=== PATIENT | male | born 1945 | race Caucasian/White ===

== ENCOUNTER → 2020-11-15 16:06 | Outpatient (CLI) | payer MEDICARE, SELFPAY ==
--- NOTE | ~2020-11-15 | XR_ITS ---
EXAMINATION: XR elbow RT 2V DATE: 11/15/2020 16:20 INDICATION: Right elbow pain. TECHNIQUE: 2 views of right elbow were obtained. COMPARISON: None. FINDINGS: Bone alignment is normal. No fracture. Joint spaces are normal. There are enthesophytes at the medial and lateral humeral epicondyles and olecranon. No elbow joint effusion. IMPRESSION: 1. No fracture. Reviewed, dictated and finalized at location A. IMPRESSION: 1. No fracture.
== END ==
PROVIDERS: PCP Family Medicine; Visit Provider Physician Assistant Medical
DX: M25.521 Pain in right elbow (principal)
CPT/HCPCS: 73070

== ENCOUNTER 2021-01-24 08:23 | Outpatient (CLI) | payer MEDICARE, SELFPAY ==
--- NOTE | 2021-01-24 11:45 | NEURO_ITS ---
Impression: # Complains of numbness of hands. # Bilateral Carpal Tunnel Syndrome, left more than right. # Right ulnar neuropathy across the elbow. # Needle/EMG exam abnormal in the distribution of ulnar/median nerves. # Clinical correlation recommended. Nerve Conduction Studies Anti Sensory Summary Table Stim Site NR Peak (ms) P-T Amp (?V) Site1 Site2 Delta-P (ms) Dist (cm) Mickey (m/s) Left Median Anti Sensory (2-3nd Digit) Wrist 4.4 10.6 Wrist 2-3nd Digit 4.4 14.0 32 Wrist 4.7 9.0 Wrist 2-3nd Digit 4.4 14.0 32 Right Median Anti Sensory (2-3nd Digit) Wrist 4.1 42.1 Wrist 2-3nd Digit 4.1 14.0 34 Wrist 4.1 32.4 Wrist 2-3nd Digit 4.1 14.0 34 Left Radial Anti Sensory (Base 1st Digit) Wrist 2.1 37.1 Wrist Base 1st Digit 2.1 0.0 Right Radial Anti Sensory (Base 1st Digit) Wrist 2.3 11.6 Wrist Base 1st Digit 2.3 0.0 Left Ulnar Anti Sensory (5th Digit) Wrist 3.2 29.2 Wrist 5th Digit 3.2 14.0 44 Right Ulnar Anti Sensory (5th Digit) Wrist 3.3 10.8 Wrist 5th Digit 3.3 14.0 42 Motor Summary Table Stim Site NR Onset (ms) O-P Amp (mV) Site1 Site2 Delta-0 (ms) Dist (cm) Mickey (m/s) Left Median Motor (Abd Poll Brev) Wrist 5.2 1.1 Elbow Wrist 6.6 31.0 47 Elbow 11.8 1.2 Right Median Motor (Abd Poll Brev) Wrist 4.6 3.3 Elbow Wrist 5.7 32.0 56 Elbow 10.3 2.9 Left Ulnar Motor (Abd Dig Minimi) Wrist 3.0 5.9 A Elbow Wrist 6.2 33.0 53 A Elbow 9.2 5.2 Right Ulnar Motor (Abd Dig Minimi) Wrist 2.9 4.4 A Elbow Wrist 7.6 31.0 41 A Elbow 10.5 2.9 B Elbow Wrist 5.9 25.0 42 B Elbow 8.8 3.4 F Wave Studies NR F-Lat (ms) L-R F-Lat (ms) Left Median (Mrkrs) (Abd Poll Brev) 32.70 0.00 Right Median (Mrkrs) (Abd Poll Brev) 32.70 0.00 Left Ulnar (Mrkrs) (Abd Dig Min) 33.88 0.73 Right Ulnar (Mrkrs) (Abd Dig Min) 33.15 0.73 EMG Side Muscle Nerve Root Ins Act Fibs Amp Dur Recrt Comment Right 1stDorInt Ulnar C8-T1 Nml Nml Incr >12ms Reduced Right Ext Indicis Radial (Post Int) C7-8 Nml Nml Nml Nml Nml Right Ext Digitorum Radial (Post Int) C7-8 Nml Nml Nml Nml Nml Right BrachioRad Radial C5-6 Nml Nml Nml Nml Nml Right PronatorTeres Median C6-7 Nml Nml Nml Nml Nml Right Abd Poll Brev Median C8-T1 Nml Nml Incr >12ms Reduced Left 1stDorInt Ulnar C8-T1 Nml Nml Nml Nml Nml Left Ext Indicis Radial (Post Int) C7-8 Nml Nml Nml Nml Nml Left Ext Digitorum Radial (Post Int) C7-8 Nml Nml Nml Nml Nml Left BrachioRad Radial C5-6 Nml Nml Nml Nml Nml Left PronatorTeres Median C6-7 Nml Nml Nml Nml Nml Left Abd Poll Brev Median C8-T1 Nml Nml Incr >12ms Reduced Right ABD Dig Min Ulnar C8-T1 Nml Nml Incr >12ms Reduced Right Biceps Musculocut C5-6 Nml Nml Nml Nml Nml Right Triceps Radial C6-7-8 Nml Nml Nml Nml Nml Right Deltoid Axillary C5-6 Nml Nml Nml Nml Nml Left ABD Dig Min Ulnar C8-T1 Nml Nml Nml Nml Nml MTDD
== END 2021-01-24 08:24 | disposition home or self-care (01) ==
PROVIDERS: PCP Family Medicine; Visit Provider Physician Assistant Medical
DX: R20.2 Paresthesia of skin (principal); G56.03 Carpal tunnel syndrome, bilateral upper limbs; G56.21 Lesion of ulnar nerve, right upper limb
CPT/HCPCS: 95886; 95911

== ENCOUNTER 2021-02-11 17:26 | Emergency (ER) | payer MEDICARE, SELFPAY ==
--- NOTE | 2021-02-11 17:34 | ED.WOUNDLAC ---
HPI - Wound/Laceration General Chief Complaint: Wound/Laceration Stated Complaint: cut left ear Time Seen by Provider: 02/11/21 17:45 Source: patient and RN notes reviewed Mode of arrival: ambulatory Limitations: no limitations History of Present Illness HPI narrative: 75-year-old male presents with concern for laceration to the left ear. Reports he was cutting his hair when he accidentally cut his ear. Reports he takes aspirin for blood thinner. He denies intervention. Location: face Related Data Home Medications Medication Instructions Recorded Confirmed aspirin 81 mg tablet,delayed 81 mg PO DAILY 09/13/20 11/15/20 release atorvastatin 40 mg tablet 40 mg PO DAILY 09/13/20 11/15/20 budesonide-formoterol HFA 160 2 puff INHALATION Q12H 09/13/20 11/15/20 mcg-4.5 mcg/actuation aerosol inhaler ferrous sulfate 300 mg (60 mg 300 mg PO DAILY 09/13/20 11/15/20 iron)/5 mL oral liquid furosemide 40 mg tablet 40 mg PO BID 09/13/20 11/15/20 lisinopril 10 mg tablet 10 mg PO DAILY 09/13/20 11/15/20 metoprolol succinate 25 mg 25 mg PO BID 09/13/20 11/15/20 tablet,extended release 24 hr multivitamin 1 tablet PO DAILY 09/13/20 11/15/20 potassium chloride 40 mEq/15 mL 20 meq PO BID 09/13/20 11/15/20 oral liquid saw palmetto 450 mg capsule 450 mg PO BID 09/13/20 11/15/20 Allergies Allergy/AdvReac Type Severity Reaction Status Date / Time No Known Allergies Allergy Verified 11/15/20 15:17 Review of Systems Review of Systems: CONSTITUTIONAL: Denies malaise, chills, sweats, or fever. SKIN: Reports wound to the left ear All systems reviewed & are unremarkable except as noted in HPI and below PMFSH Past Medical History Medical History BMI 25.0-25.9,adult BMI 26.0-26.9,adult CAD (coronary artery disease) CHF (congestive heart failure) COPD (chronic obstructive pulmonary disease) Elevated brain natriuretic peptide (BNP) level HTN (hypertension) Hypothyroidism, unspecified Mixed hyperlipidemia Pacemaker Primary osteoarthritis of right knee Strain of left quadriceps muscle, fascia and tendon, subsequent encounter (11/28/16) Traumatic rupture of left quadriceps tendon Venous stasis ulcer of right calf limited to breakdown of skin Surgical History Surgical History History of AAA (abdominal aortic aneurysm) repair History of hernia repair History of mitral valve replacement with porcine valve S/P CABG (coronary artery bypass graft) Family History Family History Father Hypertension Family history of coronary artery disease Acute myocardial infarction Mother No problems noted. Sibling Arrhythmia, skilled nursing Hypertension Shingles Social History Social History Tobacco type: cigarettes Smoking end date: 10/04/16 Alcohol intake: current Substance use: never Substance use type: does not use Additional occupation/education comments: [employer] Gender identity (if verbalized by the patient): Male Comments At time of signature, agree with nursing past medical, surgical, social and family history. There is no relevant family history pertinent to the presenting complaint Exam Narrative: GENERAL: Well-appearing, well-nourished, and in no acute distress. HEAD: Normocephalic, atraumatic. EYES: PERRLA, sclera clear ENT: Mucous membranes moist. NECK: Supple. No lymphadenopathy CHEST: Clear to auscultation. No respiratory distress. HEART: Regular rate and rhythm. SKIN: Warm, dry. 1 cm x 0.25 cm skin avulsion noted to the skin of the upper outer ear, wound edges not able to be approximated., No current bleeding. NEURO: Alert and oriented x3. PSYCH: Normal mood and affect Course Course Emergency Course: Sterile dressing applied. Patient is aware of diagno
[2021-02-11 17:39] VITALS: BP 165/58; PULSE 70; RESP 16; TEMP 36.8; O2SAT 98
[2021-02-11] MEDS: TETANUS,DIPHTHERIA,AC PERTUSSIS ADULT (0.5 ML) BOOSTRIX IM (18:10)
== END 2021-02-11 18:37 | disposition home or self-care (01) ==
PROVIDERS: Emergency Provider Nurse Practitioner; PCP Family Medicine
DX: S01.302A Unspecified open wound of left ear, initial encounter (principal); W45.8XXA Other foreign body or object entering through skin, initial encounter; Z23 Encounter for immunization; F17.200 Nicotine dependence, unspecified, uncomplicated; I25.10 Atherosclerotic heart disease of native coronary artery without angina pectoris; I11.0 Hypertensive heart disease with heart failure; I50.9 Heart failure, unspecified; J44.9 Chronic obstructive pulmonary disease, unspecified; E78.2 Mixed hyperlipidemia; Z95.0 Presence of cardiac pacemaker; M17.11 Unilateral primary osteoarthritis, right knee; Z95.2 Presence of prosthetic heart valve; Z95.1 Presence of aortocoronary bypass graft
CPT/HCPCS: 90471; 90715; 99212; G0463

== ENCOUNTER → 2021-08-15 13:00 | Outpatient (CLI) | payer MEDICARE, SELFPAY ==
--- NOTE | ~2021-08-15 | XR_ITS ---
EXAMINATION: XR chest 2V EXAM DATE: 08/15/2021 13:24 INDICATION: R05.9 - Cough, unspecified. TECHNIQUE: Frontal and lateral projections of the chest obtained and reviewed. Comparison is made to prior examination from 01/27/2013. FINDINGS: The cardiac silhouette is enlarged. There is pulmonary vascular congestion. Small left pleu ral effusion. Multi lead pacemaker/AICD device. Sternotomy wires. Some chronic hyperinflation. No pne umothorax. There are bony degenerative changes. IMPRESSION: 1. Small left pleural effusion. 2. Cardiomegaly, pulmonary vascular congestion. 3. Hyperinflation. Reviewed, dictated and finalized at location B.
== END ==
PROVIDERS: PCP Nurse Practitioner Family; Visit Provider Nurse Practitioner Family
DX: R05.9 Cough, unspecified (principal); R91.8 Other nonspecific abnormal finding of lung field; J90 Pleural effusion, not elsewhere classified; I51.7 Cardiomegaly
CPT/HCPCS: 71046

== ENCOUNTER 2021-08-27 12:24 | Outpatient (CLI) | payer MEDICARE, SELFPAY ==
[2021-08-27 14:06] LABS: Hematocrit 37.7 % (42.0-52.0); Hemoglobin 12.1 g/dL (14.0-18.0)
[2021-08-27 14:18] LABS: Anion Gap 5 mmol/L (8-16); Blood Urea Nitrogen 28 mg/dL (9-20); Calcium 8.5 mg/dL (8.4-10.2); Carbon Dioxide 29 mmol/L (22-30); Chloride 104 mmol/L (98-107); Estimated Glomerular Filt Rate 49; Glucose 121 mg/dL (65-110); Potassium 3.9 mmol/L (3.4-5.0); Sodium 138 mmol/L (137-145)
== END 2021-08-27 12:25 | disposition home or self-care (01) ==
LOC: ANHSURGERY 12:29
PROVIDERS: Anesthesiology; PCP Family Medicine; Visit Provider Plastic Surgery
DX: Z01.818 Encounter for other preprocedural examination (principal); D64.9 Anemia, unspecified; Z79.899 Other long term (current) drug therapy
CPT/HCPCS: 36415; 80048; 85014; 85018

== ENCOUNTER 2021-08-30 01:48 | Day surgery (SDC) | payer MEDICARE, SELFPAY ==
[2021-08-23 10:08] VITALS: BMI 26.4
--- NOTE | 2021-08-23 10:30 | PC.NURSE ---
Report to the Outpatient Waiting Room, entrance under the green pavilion located off [facility], at time _1015_ on date _08/30/21_. OR Time: _1215_. - You and your visitor will be asked a series of questions to screen for COVID 19 for your protection. - A mask is required within the hospital. One visitor will be allowed to accompany the patient into the hospital. Patients visitor will be instructed to remain with patient at all times or leave the building. We will allow the visitor to come back to the postoperative area when patient is ready. Preoperative COVID Testing Requirements: NONE Patients may have clear liquids (water, carbonated beverages, clear teas, apple juice) until 3 hours prior to surgery (0915 AM) with a maximum of 20 ounces. - No food from midnight until time of surgery Take the following medications with a SIP of water the morning of surgery: _METOPROLOL, INHALER, NASAL SPRAY_ Medications to discontinue _ ASPIRIN - PER DR. MUÑOZ'S INSTRUCTIONS Medications to discontinue per ANESTHESIA - VITAMIN D, FISH OIL AND SAW PALMETTO - 3 DAYS PRIOR TO SURGERY, Date to take last dose_08/26/21 Please no make-up, nail yoruba, hairspray, perfume, deodorant, or body powder the day of surgery. No jewelry (including any body piercings) or valuables the day of surgery, leave them at home. Please take a shower or bath the night before, or the morning of, surgery with an antibacterial soap. Wear comfortable, loose fitting clothing. - Jewelry must be removed prior to entering the operating room. Rings and piercings that are not removed may be cut off. - The hospital will not accept responsibility for valuables. - Please leave all valuables, including medications, at home the day of surgery. If you are going home after surgery, a licensed cab driver must drive you home. - NO public transportation without another adult. - We recommend that an adult stay with you for 24 hours following discharge. - We also recommend that you do not drive, make important decision, drink alcoholic beverages, or take any drugs that were not prescribed by your health care provider for at least 24 hours after your discharge time. Follow any additional instructions given to you from your surgeon. Telephone instructions given to _PT'S SPOUSE KAY__and asked if any additional questions and then verbalized understanding. Patient advised to call surgeon office or pre surgery nurse liaisonBRENNA [phone] if any additional questions.
--- NOTE | 2021-08-30 07:10 | WPDHPUPDATE1 ---
History and Physical Update Update Date/Time: 08/30/21 07:10 History and Physical has been reviewed, including an updated exam of the patient. There are NO changes in the patient's condition. Risks, benefits, and alternatives have been discussed and questions answered. Patient agrees to proceed with procedure.
--- NOTE | 2021-08-30 07:22 | WPDANESEPPF ---
Anes - Initial Pre Proc Eval Procedure: Operation Date: 08/30/21 12:15 Proposed Procedures p Right Open Carpal Tunnel Release - Aydin Dumont MD s Right Ulnar Neuroplasty - Aydin Dumont MD <Rodrigo Leyva MD - Last Filed: 09/04/21 15:25> Date/Time: 08/30/21 07:22 <Rodrigo Leyva MD - Last Filed: 09/04/21 15:25> Surgeon: Aydin Dumont MD <Rodrigo Leyva MD - Last Filed: 09/04/21 15:25> Pre Op Diagnosis: Rt Carpal and Cubital Tunnel Syndrome <Rodrigo Leyva MD - Last Filed: 09/04/21 15:25> Patient Data Age: 75 Gender: M Height: 1.83 m Weight: 88.63 kg <Rodrigo Leyva MD - Last Filed: 09/04/21 15:25> Allergies Allergy/AdvReac Type Severity Reaction Status Date / Time No Known Allergies Allergy Verified 08/23/21 09:59 <Rodrigo Leyva MD - Last Filed: 09/04/21 15:25> Home Medications Medication Instructions Recorded Confirmed Type aspirin 81 mg tablet,delayed 81 mg PO DAILY 09/13/20 08/30/21 History release atorvastatin 40 mg tablet 40 mg PO HS 09/13/20 08/30/21 History ferrous sulfate 300 mg (60 mg 300 mg PO DAILY 09/13/20 08/30/21 History iron)/5 mL oral liquid furosemide 40 mg tablet 40 mg PO BID 09/13/20 08/30/21 History metoprolol succinate 25 mg 25 mg PO BID 09/13/20 08/30/21 History tablet,extended release 24 hr multivitamin 1 tablet PO DAILY 09/13/20 08/30/21 History potassium chloride 40 mEq/15 mL 20 meq PO BID 09/13/20 08/30/21 History oral liquid saw palmetto 450 mg capsule 450 mg PO BID 09/13/20 08/30/21 History budesonide-formoterol HFA 80 1 inh INHALATION TID 07/04/21 08/30/21 History mcg-4.5 mcg/actuation aerosol inhaler ipratropium bromide 21 mcg (0.03 2 spray INTRANASAL BID PRN #30 ml 08/13/21 08/30/21 Rx %) nasal spray lisinopril 20 mg tablet 20 mg PO DAILY #30 tablet 08/13/21 08/30/21 Rx risperidone 0.25 mg tablet 0.25 mg PO QHS #90 tablet 08/13/21 08/30/21 Rx cholecalciferol (vitamin D3) 25 mcg PO DAILY 08/23/21 08/30/21 History omega-3 fatty acids-vitamin E 1 cap 4XW 08/23/21 08/30/21 History hydrocodone-acetaminophen 1 tablet PO Q6H PRN #6 tablet MDD 6 08/30/21 Rx <Rodrigo Leyva MD - Last Filed: 09/04/21 15:25> Patient hx anesthesia problems: none <Sammy Lebron DO - Last Filed: 08/30/21 11:11> Family hx anesthesia problems: none <Sammy Lebron DO - Last Filed: 08/30/21 11:11> Results Review: All pre-operative results and documents have been reviewed as part of the pre-operative evaluation. <Rodrigo Leyva MD - Last Filed: 09/04/21 15:25> [facility] Past Medical History Medical History: Medical History (Updated 08/30/21 @ 07:23 by Rodrigo Leyva MD) Atrial fibrillation BMI 25.0-25.9,adult BMI 26.0-26.9,adult BMI 27.0-27.9,adult CAD (coronary artery disease) CHF (congestive heart failure) COPD (chronic obstructive pulmonary disease) Elevated brain natriuretic peptide (BNP) level HTN (hypertension) Hypothyroidism, unspecified Mixed hyperlipidemia Pacemaker Primary osteoarthritis of right knee Strain of left quadriceps muscle, fascia and tendon, subsequent encounter (11/28/16) Traumatic rupture of left quadriceps tendon Varicose veins of right lower extremity Venous stasis ulcer of right calf limited to breakdown of skin <Rodrigo Leyva MD - Last Filed: 09/04/21 15:25> Surgical History Surgical History: Surgical History History of AAA (abdominal aortic aneurysm) repair History of hernia repair History of mitral valve replacement with porcine valve S/P CABG (coronary artery bypass graft) <Rodrigo Leyva MD - Last Filed: 09/04/21 15:25> Family History Family History: Family History Father Hypertension Family history of coronary artery disease Acute myocardial infarction Mother
[2021-08-30] MEDS: LACTATED RINGERS 1,000 ML 30 ML IV CONT (11:20)
[2021-08-30 11:24] VITALS: BP 145/65; PULSE 70; RESP 16; TEMP 36.3; O2SAT 100
[2021-08-30] MEDS: LIDO 1%/EPINEPHRINE/PF 1:200,000 30 ML VIAL INFILTRATE (13:09)
[2021-08-30 13:36] VITALS: BP 154/67; PULSE 70; RESP 14; O2SAT 100
--- NOTE | 2021-08-30 13:53 | W.PM.PROC2 ---
Procedure Note - Detailed Date of Procedure 08/30/21 Pre-op Diagnosis Rt Carpal and Cubital Tunnel Syndrome Post-op Diagnosis Same Procedure Performed Right open carpal tunnel release and right ulnar neuroplasty at the elbow. Surgeon Aydin Dumont MD Natural Resource Technician Ena CHAU Description of Procedure The right carpal canal and right cubital tunnel were marked on the patient in the holding area. He was taken to the operating room and placed supine on the operating table. A time-out was held and confirmed. He was given IV sedation. The right upper extremity was prepped and draped usual fashion. The sites were marked for incisions and locally infiltrated with 1% lidocaine with epinephrine. The extremity was exsanguinated the tourniquet inflated to 250 mmHg. Surgery was begun in the palm with incision as marked. Blunt dissection revealed the palmar fashion this was incised revealing the transverse retinaculum. This was incised with a 15 blade opening the canal under 3 point retraction the ligament was divided distally and proximally to completely release the carpal tunnel. Wound was then closed with interrupted 4-0 nylon suture. The elbow was then flexed and supported on folded towels and the incision was made over the cubital tunnel. Dissection proximally a posterior to the medial epicondyle revealed the course of the ulnar nerve. This seemed tightly impacted against the intermuscular septum. It is also seemed to be under pressure at Barroso's ligament and at the proximal edge of the flexor aponeurosis. All of this was released. The nerve did not sublux. Bleeding points were electrocoagulated the tourniquet was released and the wound was closed with intradermal 3-0 Monocryl sutures at the cross franco gardner and the skin was closed with a running intradermal 3-0 Monocryl. The bulky bandages as usual were applied the patient was discharged from the operating room stable condition he has instructions care follow-up and a prescription was sent to his pharmacy for hydrocodone 5325 6. Estimated Blood Loss 1 Drains No Packing No Pathology None sent Complications No immediate complications Condition Stable Disposition Same day
[2021-08-30 14:06] VITALS: BP 177/68; PULSE 69; RESP 14
[2021-08-30 14:36] VITALS: BP 177/81; PULSE 69; RESP 14
[2021-08-30 15:06] VITALS: BP 177/68; PULSE 69; RESP 14
== END 2021-08-30 15:35 | disposition home or self-care (01) ==
PROVIDERS: PCP Family Medicine; Visit Provider Plastic Surgery
PROC: (CPT 64721; principal; 2021-08-30 12:15)
PROC: (CPT 64721; 2021-08-30 12:15)
DX: G56.01 Carpal tunnel syndrome, right upper limb (principal); G56.21 Lesion of ulnar nerve, right upper limb; I48.91 Unspecified atrial fibrillation; I25.10 Atherosclerotic heart disease of native coronary artery without angina pectoris; I11.0 Hypertensive heart disease with heart failure; I50.9 Heart failure, unspecified; J44.9 Chronic obstructive pulmonary disease, unspecified; E78.2 Mixed hyperlipidemia; E03.9 Hypothyroidism, unspecified; Z95.0 Presence of cardiac pacemaker; Z95.1 Presence of aortocoronary bypass graft; Z95.3 Presence of xenogenic heart valve; Z87.891 Personal history of nicotine dependence; Z79.82 Long term (current) use of aspirin; Z79.51 Long term (current) use of inhaled steroids
CPT/HCPCS: 64721; 64718; 36415; 80048; 85014; 85018; J1100; J2250; J2405; J2704; J3010; J7120

== ENCOUNTER 2021-09-11 14:05 | Outpatient (CLI) | payer MEDICARE, SELFPAY ==
--- NOTE | ~2021-09-11 | US_ITS ---
EXAMINATION: US venous doppler [facility] DATE: 09/11/2021 15:22 INDICATION: Left lower limb pain TECHNIQUE: Grayscale ultrasound images without and with compression and Doppler ultrasound images of the bilateral lower extremity veins were obtained. COMPARISON: None. FINDINGS: The visualized portions of right common femoral vein, profunda (deep) femoral vein, femoral vein, pop liteal vein, posterior tibial veins, peroneal veins, lesser saphenous vein and greater saphenous vein outflow are patent. There is a lenticular complex anechoic/hypoechoic subcutaneous fluid collection along the anterolateral left lower leg which measures 3.2 x 3.2 x 0.6 cm. No internal vascular flow o r surrounding hyperemia on color Doppler. The visualized portions of left common femoral vein, profunda femoral vein, femoral vein, popliteal v ein, posterior tibial veins, peroneal veins, lesser saphenous vein and greater saphenous vein outflow are patent. IMPRESSION: 1. No deep venous thrombosis in either lower limb. 2. 3.2 x 3.2 x 0.6 similar complex lenticular subcutaneous fluid collection at the anterolateral left lower leg. Differential would include hematoma, particularly given the provided history of trauma, o r less likely abscess in the appropriate clinical setting. Reviewed, dictated and finalized at location B. IMPRESSION: 1. No deep venous thrombosis in either lower limb. 2. 3.2 x 3.2 x 0.6 similar complex lenticular subcutaneous fluid collection at the anterolateral left lower leg. Differential would include hematoma, particul juan francisco given the provided history of trauma, or less likely abscess in the approp riate clinical setting.
== END 2021-09-11 14:06 | disposition home or self-care (01) ==
PROVIDERS: PCP Family Medicine; Visit Provider Physician Assistant Medical
DX: M79.89 Other specified soft tissue disorders (principal)
CPT/HCPCS: 93970

== ENCOUNTER 2022-04-07 11:29 | Emergency (ER) | payer MEDICARE, SELFPAY ==
[2022-04-07 13:05] VITALS: BP 175/69; PULSE 69; RESP 18; TEMP 36.9; O2SAT 100
--- NOTE | 2022-04-07 13:39 | ED.GENADULT ---
HPI - General Adult General Chief complaint: Extremity Injury, Lower Stated complaint: left knee pain Time Seen by Provider: 04/07/22 13:39 Source: patient Mode of arrival: ambulatory Limitations: no limitations History of Present Illness HPI narrative: 76-year-old male patient presents to the [facility] with complaints of left knee pain that started approximately 2 days ago. Patient states he recently returned from [place] where he did do a lot of walking around but denies any recent falls or trauma to the knee that he is aware of. Patient has had knee surgery in the left knee in the past back in 2017. Patient states that Dr. Chavis presented his surgery. Patient states he does have a doctor's appointment with Dr. Sweeney tomorrow his primary doctor however he states that the pain is been increasingly bad that he went comes to be seen today. Patient also notes that he has recently started having chills and body aches but denies any fevers that he is aware of. Patient states that the pain to the left knee is so significant that he is unable to bend the knee. Related Data Home Medications Medication Instructions Recorded Confirmed aspirin 81 mg tablet,delayed 81 mg PO DAILY 09/13/20 04/07/22 release (Adult Aspirin Regimen) atorvastatin 40 mg tablet 40 mg PO HS 09/13/20 04/07/22 ferrous sulfate 300 mg (60 mg 300 mg PO DAILY 09/13/20 04/07/22 iron)/5 mL oral liquid furosemide 40 mg tablet 40 mg PO BID 09/13/20 04/07/22 metoprolol succinate 25 mg 25 mg PO BID 09/13/20 04/07/22 tablet,extended release 24 hr multivitamin (Daily Multi-Vitamin 1 tablet PO DAILY 09/13/20 04/07/22 tablet) potassium chloride 40 mEq/15 mL 20 meq PO BID 09/13/20 04/07/22 oral liquid saw palmetto 450 mg capsule 450 mg PO BID 09/13/20 04/07/22 budesonide-formoterol HFA 80 1 inh inhalation TID 07/04/21 04/07/22 mcg-4.5 mcg/actuation aerosol inhaler (Symbicort) cholecalciferol (vitamin D3) 25 25 mcg PO DAILY 08/23/21 04/07/22 mcg (1,000 unit) capsule omega-3 fatty acids-vitamin E 1 cap 4XW 08/23/21 04/07/22 1,000 mg capsule Allergies Allergy/AdvReac Type Severity Reaction Status Date / Time No Known Allergies Allergy Verified 04/07/22 13:05 Review of Systems Review of Systems: CONSTITUTIONAL: Denies fever, chills, or sweats. EYES: Denies visual changes, redness, or discharge. ENT: Denies rhinorrhea, congestion, sore throat, or otalgia. CARDIOVASCULAR: Denies chest pain, palpitations, or edema. RESPIRATORY: Denies cough or dyspnea. GASTROINTESTINAL: Denies abdominal pain, nausea, vomiting, or diarrhea. GENITOURINARY: Denies dysuria or hematuria. SKIN: Denies rash or itching. MUSCULOSKELETAL: Denies back pain, joint pain, or myalgia. Positive left knee pain. NEUROLOGIC: Denies headache, numbness, or weakness. PSYCHIATRIC: Denies anxiety or depression. 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
== END 2022-04-07 13:59 | disposition short-term general hospital (02) ==
PROVIDERS: Emergency Provider Nurse Practitioner Family; PCP Family Medicine
DX: M25.562 Pain in left knee (principal); M25.462 Effusion, left knee; Z87.891 Personal history of nicotine dependence; I48.91 Unspecified atrial fibrillation; I25.10 Atherosclerotic heart disease of native coronary artery without angina pectoris; I11.0 Hypertensive heart disease with heart failure; I50.9 Heart failure, unspecified; J44.9 Chronic obstructive pulmonary disease, unspecified; E03.9 Hypothyroidism, unspecified; E78.2 Mixed hyperlipidemia; Z95.0 Presence of cardiac pacemaker; M17.11 Unilateral primary osteoarthritis, right knee; I83.91 Asymptomatic varicose veins of right lower extremity; Z95.1 Presence of aortocoronary bypass graft; Z95.2 Presence of prosthetic heart valve; Z79.82 Long term (current) use of aspirin
CPT/HCPCS: 99212; G0463

== ENCOUNTER 2022-04-07 14:33 | Observation (INO) | payer MEDICARE, SELFPAY ==
[2022-04-07] VITALS (7 sets, daily range): BP systolic 130–161; BP diastolic 55–100; PULSE 66–70; RESP 16–18; TEMP 36.6–37.3; O2SAT 99–100; BMI 25.7
--- NOTE | ~2022-04-07 | CT_ITS ---
EXAMINATION: CT knee LT wo con DATE: 04/08/2022 16:36 INDICATION: Quadriceps tendon tear versus tophaceous gout with acute onset left suprapatellar pain. TECHNIQUE: High resolution computed tomography (CT) of the left knee was performed without intravenou s contrast. Additional sagittal and coronal reconstructions were performed. Automated exposure contro l and iterative reconstruction technique were employed. The dose-length product was 866.21 mGy-cm. COMPARISON: None FINDINGS: Bone alignment is normal. No fracture. Small amount of gas at the suprapatellar pouch of the joint sp kahlil likely related to a joint aspiration earlier in the day. No significant residual joint effusion. Joint spaces appear otherwise unremarkable on nonweightbearing imaging. Postoperative change of prior distal quadriceps tendon repair with suture material extending proximally from 3 small round suture anchor sites along the proximal rim of the patella. A few small bone fragments along the superomedial margin of the patella. No acute appearing donor site identified to suggest a recent avulsion. There is thickening of the distal 5 cm the tendon surrounding the curvilinear suture material which could r epresent either residual postoperative scarring or subsequent tendinopathy. No hypodense fluid collec tions to suggest a discrete tear defect. There is approximately 1.5 x 1.4 x 0.9 cm ovoid region with subtle curvilinear peripheral rim calcification along the superficial margin of the tendon which sugg ests developing heterotopic ossification. Quadriceps tendon appears normal. There are few surgical cl ips along the medial side of the knee consistent with prior saphenous vein graft harvest, with the gr eater saphenous vein at the thigh terminating at the cephalad-most clip. There is subcutaneous edema mild at the medial and lateral aspects of the distal thigh becoming more prominent anterior to the pa tella and about the proximal calf. IMPRESSION: 1. Prominent thickening of the distal 5 cm the distal quadriceps tendon where there are changes consi stent with a prior distal tendon repair including 3 suture anchor sites at the proximal end of the pa tella. The thickening could be related to either scarring related to the prior surgery or subsequent tendinopathy. No fluid attenuation tear defects identified. 2. Small amount of gas and minimal fluid at the suprapatellar pouch of the left knee likely related t o a joint aspiration primarily in the day. Correlate with laboratory findings of the joint fluid. Reviewed, dictated and finalized at location A. HANGER IMPRESSION: 1. Prominent thickening of the distal 5 cm the distal quadriceps tendon where t here are changes consistent with a prior distal tendon repair including 3 sutur e anchor sites at the proximal end of the patella. The thickening could be rela alexandra to either scarring related to the prior surgery or subsequent tendinopathy. No fluid attenuation tear defects identified. 2. Small amount of gas and minimal fluid at the suprapatellar pouch of the left knee likely related to a joint aspiration primarily in the day. Correlate with laboratory findings of the joint fluid.
--- NOTE | ~2022-04-07 | US_ITS ---
. EXAMINATION: US knee asp inj w image LT DATE: 04/08/2022 14:21 INDICATION: Left knee pain. TECHNIQUE: The procedure including the risks, benefits, and alternatives was discussed with the patie nt. Risks discussed included bleeding and infection. The patient understood the risks and agreed to p roceed. The skin overlying the left knee was prepped and draped in usual sterile fashion. Anesthetic was administered with 1% lidocaine subcutaneously. An 18 spinal needle was inserted into the knee j oint under continuous sonographic guidance. Fluid was aspirated. The entry site was cleaned and dress ed. There were no immediate complications. FINDINGS: Ultrasound images demonstrate the needle in the left knee joint effusion. No other fluid co llection was identified in the anterior knee. IMPRESSION: 1. Ultrasound-guided left knee joint aspiration yielding 16 mL red fluid. Reviewed, dictated and finalized at location A. MANAGER
--- NOTE | ~2022-04-07 | XR_ITS ---
EXAM: XR knee LT min 4V DATE: 04/07/2022 16:41 HISTORY: left knee pain, swelling, redness onset x 4 days;no inj . COMPARISON: None available. FINDINGS: Decreased mineralization. No fracture or dislocation. No lytic or blastic lesion. Tricompa rtmental osteoarthritis, moderate in the medial compartment. No erosion or periosteal change. Medial vascular clips. Vascular calcification. Soft tissue swelling anterior to the patella and patellar ten don. Moderate volume joint fluid. IMPRESSION: No acute osseous finding. Anterior soft tissue swelling. Moderate left knee joint effusio n. Reviewed, dictated and finalized at location K. D OUTSOLE STITCHER IMPRESSION: No acute osseous finding. Anterior soft tissue swelling. Moderate l eft knee joint effusion.
[2022-04-07 14:57] LABS: Basophils Percent Auto 0.2 % (0.2-1.2); Eosinophils Percent Auto 0.3 % (0-4.4); Hematocrit 38.1 % (42.0-52.0); Hemoglobin 12.3 g/dL (14.0-18.0); Immature Granulocyte Absolute 0.05 K/mm3 (0.00-0.031); Immature Granulocyte Percent A 0.4 % (0-0.5); Lymphocytes Absolute Auto 1.55 K/mm3 (0.9-3.2); Lymphocytes Percent Auto 12.3 % (18.3-44.2); Mean Corpuscular HGB Conc 32.3 g/dl (32-36); Mean Corpuscular Hemoglobin 31.5 pg (26-34); Mean Corpuscular Volume 97.7 fl (80-100); Mean Platelet Volume 10.9 fl (7.4-10.4); Monocytes Percent Auto 7.6 % (2.6-8.5); Neutrophils Percent Auto 79.2 % (45.5-73.1); Platelet Count Result 107 k/mm3 (150-375); Red Cell Distribution Width 13.5 % (11.5-14.5); White Blood Count 12.6 K/mm3 (4.5-10.0)
[2022-04-07 15:09] LABS: Anion Gap 6 mmol/L (8-16); Blood Urea Nitrogen 30 mg/dL (9-20); Calcium 8.6 mg/dL (8.4-10.2); Carbon Dioxide 27 mmol/L (22-30); Chloride 102 mmol/L (98-107); Estimated CRCL calculation 43 ml/min; Estimated Glomerular Filt Rate 49; Glucose 126 mg/dL (65-110); Potassium 4.3 mmol/L (3.4-5.0); Sodium 135 mmol/L (137-145)
--- NOTE | 2022-04-07 16:34 | ED.EXTPRO ---
HPI - Extremity Problem General Chief complaint: Extremity Problem,Nontraumatic Stated complaint: left knee pain, swelling and redness x 3 days Time Seen by Provider: 04/07/22 16:13 Source: patient Mode of arrival: ambulatory Limitations: no limitations History of Present Illness HPI Narrative: This is a 76-year-old male that presents to the emergency department for left knee pain ongoing over the last couple of days. No recent injury or trauma. Reports he has had worsening redness and swelling of the left knee. Associated with decreased range of motion. Denies numbness. Related Data Home Medications Medication Instructions Recorded Confirmed aspirin 81 mg tablet,delayed 81 mg PO DAILY 09/13/20 04/07/22 release (Adult Aspirin Regimen) atorvastatin 40 mg tablet 40 mg PO HS 09/13/20 04/07/22 ferrous sulfate 300 mg (60 mg 300 mg PO DAILY 09/13/20 04/07/22 iron)/5 mL oral liquid furosemide 40 mg tablet 40 mg PO BID 09/13/20 04/07/22 metoprolol succinate 25 mg 25 mg PO BID 09/13/20 04/07/22 tablet,extended release 24 hr multivitamin (Daily Multi-Vitamin 1 tablet PO DAILY 09/13/20 04/07/22 tablet) potassium chloride 40 mEq/15 mL 20 meq PO BID 09/13/20 04/07/22 oral liquid saw palmetto 450 mg capsule 450 mg PO BID 09/13/20 04/07/22 budesonide-formoterol HFA 80 1 inh inhalation TID 07/04/21 04/07/22 mcg-4.5 mcg/actuation aerosol inhaler (Symbicort) cholecalciferol (vitamin D3) 25 25 mcg PO DAILY 08/23/21 04/07/22 mcg (1,000 unit) capsule omega-3 fatty acids-vitamin E 1 cap 4XW 08/23/21 04/07/22 1,000 mg capsule Allergies Allergy/AdvReac Type Severity Reaction Status Date / Time No Known Allergies Allergy Verified 04/07/22 14:34 Review of Systems Review of Systems: CONSTITUTIONAL: Denies fever SKIN: Reports redness MUSCULOSKELETAL: Reports joint pain, and myalgia. NEUROLOGIC: Denies numbness All systems reviewed & are unremarkable except as noted in HPI and below PMFSH Past Medical History Medical History Atrial fibrillation BMI 25.0-25.9,adult BMI 26.0-26.9,adult BMI 27.0-27.9,adult CAD (coronary artery disease) CHF (congestive heart failure) COPD (chronic obstructive pulmonary disease) Elevated brain natriuretic peptide (BNP) level HTN (hypertension) Hypothyroidism, unspecified Mixed hyperlipidemia Pacemaker Primary osteoarthritis of right knee Strain of left quadriceps muscle, fascia and tendon, subsequent encounter (11/28/16) Traumatic rupture of left quadriceps tendon 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 Venous stasis ulcer of right calf limited to breakdown of skin Surgical History Surgical History History of AAA (abdominal aortic aneurysm) repair History of carpal tunnel surgery History of hernia repair History of mitral valve replacement with porcine valve S/P CABG (coronary artery bypass graft) Family History Family History Father Hypertension Family history of coronary artery disease Acute myocardial infarction Mother Sibling Arrhythmia, roasterman Hypertension Shingles Social History Social History Tobacco type: cigarettes Second hand tobacco smoke exposure: Yes Smoking end date: 10/04/16 Additional smoking assessment comments: SPOUSE STATES PT SMOKED 1/2PK/DAY/60YRS GIVEN OR TAKE Alcohol intake: current Substance use: never Substance use type: does not use Additional occupation/education comments: [employer] Gender identity (if verbalized by the patient): Male Spiritual care concerns: No Exam Narrative: GENERAL: Well-appearing, well-nourished, and in no acute distress. HEAD: Normocephalic, atraumatic. EYES: EOMI. CHEST: No respiratory distress. HEART: Regul
[2022-04-07 16:40] LABS: Erythrocyte Sedimentation Rate 21 mm/hr (0-20)
--- NOTE | 2022-04-07 19:18 | PC.NURSE ---
Assumed care of pt at this time, report from Jadon CEBALLOS
--- NOTE | 2022-04-07 19:28 | PM.IMHP ---
H&P: HPI History of Present Illness Date/Time: 04/07/22 19:28 Chief Complaint: Left knee pain with redness x3 days. Narrative: This is a 76-year-old male patient who has been complaining of left knee pain for the last couple days. He has not had any recent injury or trauma. He has had surgery to that left knee in the past. Many years ago. The patient has worsening redness and swelling to the left knee. The left knee is swollen and he has decreased motion to that left knee. He denies any numbness. The left knee was aspirated per ED provider in the emergency room. The fluid was sent for cultures. The knee x-ray shows no acute osseous finding. Anterior soft tissue swelling. Moderate left knee joint effusion. His white count is 12.6. H&H is 12.3 and 38.1 which is his baseline. Creatinine is 1.4 which is his baseline. Uric acid is 8.9. Influenza A/B and COVID are negative. Ortho has been consulted. The patient was given Rocephin and vancomycin as well as Tylenol in the emergency room. The patient is being admitted to observation status on the date of service of 04/07/2022. Review of Systems Review of Systems: See HPI All systems reviewed & are unremarkable except as noted in HPI and below Constitutional: Constitutional: Reports as per HPI and Reports no additional constitutional complaints Eyes: Eyes: Reports as per HPI and Reports no additional eye complaints ENT: Reports system reviewed and no additional complaints, except as documented and Reports Normal hearing present Cardiovascular: Cardiovascular: Reports no additional cardiovascular complaints Respiratory: Respiratory: Reports no additional respiratory complaints and Reports no additional respiratory complaints Gastrointestinal: Gastrointestinal: Reports as per HPI and Reports no additional gastrointestinal complaints Musculoskeletal: Musculoskeletal: Reports no additional musculoskeletal complaints Integumentary/Breasts: Skin/Breast: Reports system reviewed and no additional complaints, except as docu and Reports as per HPI Neurologic: Reports system reviewed and no additional complaints, except as documented, Reports as per HPI and Reports Normal hearing present Psychiatric: Psychiatric: Reports no additional psychiatric complaints and Reports as per HPI Endocrine: Endocrine: Reports no additional endocrine complaints Hematologic/Lymphatic: Hematologic/Lymphatic: Reports no additional hematologic/lymphatic complaints Allergic/Immunologic: Allergic/Immunologic: Reports no additional allergic/immunologic complaints [facility] Past Medical History Medical History (Updated 04/07/22 @ 22:11 by Bibi Kerr NP) Atrial fibrillation BMI 25.0-25.9,adult BMI 26.0-26.9,adult BMI 27.0-27.9,adult CAD (coronary artery disease) CHF (congestive heart failure) COPD (chronic obstructive pulmonary disease) Elevated brain natriuretic peptide (BNP) level HTN (hypertension) Hypothyroidism, unspecified Mixed hyperlipidemia Pacemaker Pain and swelling of left lower leg Primary osteoarthritis of right knee Right elbow pain Strain of left quadriceps muscle, fascia and tendon, subsequent encounter (11/28/16) Traumatic rupture of left quadriceps tendon 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 Venous stasis ulcer Venous stasis ulcer of right calf limited to breakdown of skin Surgical History Surgical History (Updated 04/07/22 @ 22:16 by Bibi Kerr NP) H/O cardiac radiofrequency ablation History of AAA (abdominal aortic aneurysm) repair History of carpal tunnel surgery History of hernia repair History of mitral valve replacement with porcine valve S/P CABG (coronary artery bypass graft) Family History Family History Father Hypertension Family history of coronary artery disease Acute myocardial infarction Mother Sibling Arrhythmia, residential collections Hyper
[2022-04-07] MEDS: cefTRIAXone 2 GM in SODIUM CHLORIDE 0.9% IV 100 ML 200 ML IVPB (19:34)
[2022-04-07 19:45] LABS: Uric Acid 8.9 mg/dL (3.5-8.5)
[2022-04-07] MEDS: ACETAMINOPHEN 500 MG TABLET 1000 MG PO (19:47)
[2022-04-07 19:55] LABS: Influenza A QL RT-PCR Negative (Negative); Influenza B QL RT-PCR Negative (Negative); SARS-CoV-2 RNA PCR Negative
--- NOTE | 2022-04-07 20:08 | ADMGEN ---
This patient, Dalton Padilla, was admitted to 2 Medical Room 260-01. Patient/family oriented to hospital policies and general routines including ID bracelet, bed and alarms, visiting hours, pain management, procedures, bathroom and other care routines, personal items, smoking policy, room service/diet, and visiting hours. Information on how to activate the Rapid Response Team has been discussed. Patient/Family are encouraged to report perceived risks to care and to ask questions if they do not understand what they are told or what they should do.
[2022-04-07 20:31] LABS: Color Synovial Fluid Yellow (Colorless); Source Synovial Fluid Synovial fluid
[2022-04-07 20:32] LABS: Appearance Synovial Fluid Cloudy (Clear); Crystals Synovial Fluid None Seen (None Seen); Lymphocytes Synovial Fluid 5 %; Monocytes Synovial Fluid 9 %; Neutrophils Synovial Fluid 86 % (0-25); Nucleated Cell Synovial Fluid 336 /uL (0-200); RBC Synovial Fluid 3541 /uL (0-0)
[2022-04-07] MEDS: risperiDONE 0.25 MG TABLET PO (23:20)
[2022-04-07] MEDS: ATORVASTATIN 40 MG TABLET PO (23:20)
[2022-04-07] MEDS: METOPROLOL TARTRATE 25 MG TABLET PO (23:20)
[2022-04-07] MEDS: MELATONIN 5 MG TABLET 10 MG PO (23:20)
[2022-04-08 05:26] LABS: Estimated CRCL calculation 43 ml/min; Estimated Glomerular Filt Rate 49; Potassium 4.1 mmol/L (3.4-5.0)
[2022-04-08 06:05] VITALS: BP 154/61; PULSE 60; RESP 16; TEMP 36.7; O2SAT 98
[2022-04-08 06:47] LABS: Basophils Percent Auto 0.2 % (0.2-1.2); Eosinophils Absolute Auto 0.1 K/mm3 (0-0.3); Eosinophils Percent Auto 0.8 % (0-4.4); Hematocrit 34.7 % (42.0-52.0); Hemoglobin 11.1 g/dL (14.0-18.0); Immature Granulocyte Absolute 0.05 K/mm3 (0.00-0.031); Immature Granulocyte Percent A 0.5 % (0-0.5); Lymphocytes Absolute Auto 1.38 K/mm3 (0.9-3.2); Lymphocytes Percent Auto 12.6 % (18.3-44.2); Mean Corpuscular Hemoglobin 31.5 pg (26-34); Mean Corpuscular Volume 98.6 fl (80-100); Mean Platelet Volume 11.5 fl (7.4-10.4); Monocytes Absolute Auto 0.9 K/mm3 (0.1-0.6); Monocytes Percent Auto 8.6 % (2.6-8.5); Neutrophils Absolute Auto 8.5 K/mm3 (1.3-6.7); Neutrophils Percent Auto 77.3 % (45.5-73.1); Platelet Count Result 100 k/mm3 (150-375); Red Blood Count 3.52 M/mm3 (4.6-6.20); Red Cell Distribution Width 13.5 % (11.5-14.5)
[2022-04-08 07:54] LABS: Erythrocyte Sedimentation Rate 26 mm/hr (0-20)
--- NOTE | 2022-04-08 08:52 | PM.IMPN ---
Progress Note: A&P Assessment and Plan (1) Cellulitis of left knee: Code(s): L03.116 - Cellulitis of left lower limb Status: Acute Assessment and Plan: Patient presented to the ED with c/o left knee pain, swelling and redness. He has had difficulty ambulating. Denies fevers, chills, rigors or acute injury/trauma. Knee x-ray shows moderate joint effusion. Mild leukocytosis on admission WBC 12.6, increased inflammatory markers CRP is 6.0 - 7.0, ESR 21 - 26 orthopedics consulted and appreciate recommendations. IV Rocephin and vancomycin continued. synovial fluid from joint aspiration analysis and cultures pending. Increased neutrophils noted. continue with analgesics Medrol dosepak started per Ortho MRI contraindicated due to pacemaker. US left knee pending De-escalate antibiotics pending culture results. (2) HTN (hypertension): Qualifiers: Hypertension type: primary hypertension Qualified Code(s): I10 - Essential (primary) hypertension Code(s): I10 - Essential (primary) hypertension Status: Chronic Assessment and Plan: Chronic, stable. continue metoprolol, lisinopril, and lasix at home doses. (3) Mixed hyperlipidemia: Code(s): E78.2 - Mixed hyperlipidemia Status: Chronic Assessment and Plan: chronic, stable. continue with atorvastatin (4) Simple tics: Code(s): F95.9 - Tic disorder, unspecified Status: Chronic Assessment and Plan: chronic, stable. the patient has a facial tic. Continue risperidone at home dosing. (5) Atrial fibrillation: Qualifiers: Atrial fibrillation type: paroxysmal Qualified Code(s): I48.0 - Paroxysmal atrial fibrillation Code(s): I48.91 - Unspecified atrial fibrillation Status: Chronic Assessment and Plan: Chronic, stable. Continue metoprolol. He is only on aspirin therapy (6) Anemia: Qualifiers: Anemia type: unspecified type Qualified Code(s): D64.9 - Anemia, unspecified Code(s): D64.9 - Anemia, unspecified Status: Chronic Assessment and Plan: chronic, stable. at current baseline, continue iron supplement. (7) CHF (congestive heart failure): Qualifiers: Heart failure type: combined systolic and diastolic Heart failure chronicity: chronic Qualified Code(s): I50.42 - Chronic combined systolic (congestive) and diastolic (congestive) heart failure Code(s): I50.9 - Heart failure, unspecified Status: Chronic Assessment and Plan: Chronic, stable. Not in acute exacerbation. 12/2020 Echo EF normal with moderate LVH, mild prosthetic aortic valve regurgitation, mild prosthetic mitral valve regurgitation. Continue metoprolol, lisinopril and furosemide Monitor I/O and daily weights. (8) CAD (coronary artery disease): Qualifiers: Coronary Disease-Associated Artery/Lesion type: bypass graft [place] vs. transplanted heart: [place] heart Associated angina: without angina Qualified Code(s): I25.810 - Atherosclerosis of coronary artery bypass graft(s) without angina pectoris Code(s): I25.10 - Atherosclerotic heart disease of [place] coronary artery without angina pectoris Status: Chronic Assessment and Plan: Chronic, stable, s/p 1 vessel CABG 2018 (9) COPD (chronic obstructive pulmonary disease): Code(s): J44.9 - Chronic obstructive pulmonary disease, unspecified Status: Chronic Assessment and Plan: Chronic, stable. Not in acute exacerbation. Continue LABA/ICS scheduled, substitute advair which is on formulary. PRN albuterol HFA Plan CODE STATUS: Disposition: observation, discharge home with spouse when symptoms improved. Time Spent With Patient Time with patient: 15 - 25 minutes Subjective Date/time seen: 04/08/22 08:52 He thinks his left knee may be slightly less red. It is still painful with walking and repositioning. He denies fever, c
[2022-04-08] MEDS: FLUTICASONE/SALMETEROL 115-21 MCG INHALER 1 PUFF 2 PUFF INHALATION ×2 (08:59→21:40)
[2022-04-08] MEDS: POTASSIUM CHLORIDE 20 MEQ PACKET (FOR LIQUID) PO ×2 (09:24→17:22)
[2022-04-08] MEDS: FERROUS SULFATE 324 MG TABLET PO (09:25)
[2022-04-08] MEDS: VITAMIN E 100 UNIT CAPSULE PO (09:25)
[2022-04-08] MEDS: MULTIVITAMINS THERAPEUTIC TAB (*BKC) 1 TABLET PO (09:25)
[2022-04-08] MEDS: CHOLECALCIFEROL 1,000 UNITS TABLET 1000 UNITS PO (09:25)
[2022-04-08] MEDS: ASPIRIN 81 MG ENTERIC TABLET PO (09:25)
[2022-04-08 09:26] VITALS: PULSE 70
[2022-04-08] MEDS: lisinopriL 20 MG TABLET PO (09:26)
[2022-04-08] MEDS: FUROSEMIDE 40 MG TABLET PO ×2 (09:26→17:22)
[2022-04-08] MEDS: OMEGA 3 POLYUNSAT FATTY ACIDS 1 GM CAP PO (09:26)
[2022-04-08] MEDS: METOPROLOL TARTRATE 25 MG TABLET PO ×2 (09:26→21:17)
[2022-04-08 09:40] LABS: Hemoglobin A1C 5.6 % (<5.7)
--- NOTE | 2022-04-08 13:10 | PM.CNOR ---
Assessment and Plan Assessment and plan (1) Left knee pain: Code(s): M25.562 - Pain in left knee Status: Acute Assessment and Plan: patient is a 76-year-old gentleman who presents for evaluation of his left knee pain. His left knee started to get sore just above proximal to the patella starting 4 days ago. There is no precipitating event. There was no injury no new activities. One month prior he had been on his knees working in the [employer] to repair a leaky roof but had no difficulty at that time. He has had no fevers or chills but worsening pain that became severe causing him to go the emergency room last night. He is able to walk on it without much difficulty but bending it particularly trying to sit in the chair is extremely painful. His past medical history is significant for prior bilateral quadriceps repair by Dr. Lagunas in 5 years ago and he recovered uneventfully from that and did very well and felt that he had full function after he recovered. He has never worked on his knees. He is retired steel cnc milling machinist. His past medical history is significant for significant coronary artery disease prior coronary artery bypass and valve surgery history of AFib. For blood thinners all he takes is a baby aspirin now. His laboratory workup showed slight elevation in white count. Mild anemia of 12. This morning his white count is 11 hemoglobin 11.1. His platelet count is [id number] this morning. Platelet count was 420414 yesterday, 114,000 last year. Sedimentation rate Yesterday was 21 today is 26. Normal is 20 her last. His C-reactive protein elevated to 6 yesterday normal 1 or less and 7 today. His creatinine is 1.4. Creatinine clearance is 43. Uric acid is elevated at 8.9. On exam today he is alert and oriented pleasant gentleman no acute distress. He has no discomfort at rest. He had faint erythema superior to the patella and anteromedial anterolateral to the superior edge of the patella less than in the ER. He does not have any erythema now. There is no soft tissue edema. There is no tenderness whatsoever over the anterior patella or patellar tendon or medial or lateral joint line but he has moderate tenderness just proximal to the patella at the location of the quadriceps repair and there is thickened soft tissue palpable in that area and this tenderness extends anteromedially. Laterally the tenderness extends to the lateral margin of the distal quadriceps tendon. There is a mild effusion palpable. He was just barely able do a straight leg raise with a 10 degree lag. I could flex his knee to about 70 but he was unable to lift the heel off the bed in that position due to excessive pain. Careful palpation of the quadriceps tendon however reveals no palpable defect. In the emergency room yesterday he had aspiration of the knee. It was difficult to get through the scar tissue apparently as he had multiple passes but the physician was able to successfully remove approximately 1/3 of a syringe full of fluid and this was sent to the laboratory for analysis. Cultures are pending. No bacteria on Gram stain. Three hundred thirty-six white cells with neutrophil predominance and 3500 red cells. Crystals were negative. Cultures are pending. The plan was to obtain blood cultures prior to administration of antibiotics but it appears that they were not obtained. Patient was started on vancomycin and ceftriaxone empirically and admitted. On review of his aspiration results from last night, this morning I started him on a Decadron dose 10 mg IV and a Medrol Dosepak. Impression: Patient has pain at his quadriceps repair from 5 years ago with no new trauma. Differential diagnosis would partial tearing of the repair but that would not fit well with his history of having no new activities or trauma and the spontaneous onset of gradually worsening pain that became severe over a period of 4 days. This sounds like an inflammato
[2022-04-08 14:25] VITALS: BP 136/49; PULSE 70; RESP 14; TEMP 36.6; O2SAT 98
[2022-04-08] MEDS: ENOXAPARIN 40 MG/0.4 ML SYRINGE SUB-Q (14:58)
[2022-04-08 16:38] LABS: Crystals Synovial Fluid None Seen (None Seen)
[2022-04-08] MEDS: methylPREDNISolone (MEDROL) DOSEPACK 4 MG TABLETS PO ×2 (17:21→21:18)
[2022-04-08 20:29] VITALS: BP 161/66; PULSE 77; RESP 16; TEMP 36.6; O2SAT 96
[2022-04-08 21:17] VITALS: PULSE 77
[2022-04-08] MEDS: MELATONIN 5 MG TABLET 10 MG PO (21:18)
[2022-04-08] MEDS: risperiDONE 0.25 MG TABLET PO (21:18)
[2022-04-08] MEDS: ATORVASTATIN 40 MG TABLET PO (21:18)
[2022-04-08] MEDS: cefTRIAXone 2 GM in SODIUM CHLORIDE 0.9% IV 100 ML 200 ML IVPB (21:24)
[2022-04-08 21:40] VITALS: PULSE 78; RESP 16
[2022-04-09 04:36] VITALS: BP 139/64; PULSE 70; RESP 16; TEMP 36.4; O2SAT 97
[2022-04-09 05:34] LABS: Anion Gap 8 mmol/L (8-16); Blood Urea Nitrogen 31 mg/dL (9-20); Calcium 8.7 mg/dL (8.4-10.2); Carbon Dioxide 23 mmol/L (22-30); Chloride 104 mmol/L (98-107); Estimated CRCL calculation 50 ml/min; Estimated Glomerular Filt Rate 59; Glucose 157 mg/dL (65-110); Magnesium 2.4 mg/dL (1.6-2.3); Potassium 4.4 mmol/L (3.4-5.0); Sodium 135 mmol/L (137-145)
[2022-04-09] MEDS: methylPREDNISolone (MEDROL) DOSEPACK 4 MG TABLETS PO ×4 (05:35→20:52)
[2022-04-09 05:45] LABS: Basophils Percent Auto 0.1 % (0.2-1.2); Hematocrit 34.9 % (42.0-52.0); Hemoglobin 11.3 g/dL (14.0-18.0); Immature Granulocyte Absolute 0.13 K/mm3 (0.00-0.031); Immature Granulocyte Percent A 0.8 % (0-0.5); Lymphocytes Percent Auto 4.6 % (18.3-44.2); Mean Corpuscular HGB Conc 32.4 g/dl (32-36); Mean Corpuscular Hemoglobin 31.3 pg (26-34); Mean Corpuscular Volume 96.7 fl (80-100); Mean Platelet Volume 11.4 fl (7.4-10.4); Monocytes Absolute Auto 0.4 K/mm3 (0.1-0.6); Monocytes Percent Auto 2.4 % (2.6-8.5); Neutrophils Absolute Auto 15.9 K/mm3 (1.3-6.7); Neutrophils Percent Auto 92.1 % (45.5-73.1); Platelet Count Result 123 k/mm3 (150-375); Red Blood Count 3.61 M/mm3 (4.6-6.20); Red Cell Distribution Width 13.1 % (11.5-14.5); White Blood Count 17.3 K/mm3 (4.5-10.0)
--- NOTE | 2022-04-09 06:42 | PM.PNORT ---
Progress Note: A&P Assessment and Plan (1) Left knee pain: Code(s): M25.562 - Pain in left knee Status: Acute Plan Patient is hospital day 3. On antibiotics completing 36 hours hours. Has been on steroids for 24 hours. He feels much improved today. Is able to easily do a straight leg raise and is able to extend his knee actively from 70? with only mild discomfort. He has a trace amount of tenderness over the quadriceps tendon just above the patella and no other areas of tenderness. Minimal trace effusion. He has 5/5 quadriceps strength to today to about 5? with mild discomfort. He thinks he was able to bend this knee the same as the other knee which is about 125?. He has been afebrile. He had aspiration of the knee yesterday under ultrasound as no other fluid collections were identified. We did a CT scan as well yesterday to confirm after discussion with Dr. García he and this showed that the quadriceps repair was intact without intertendinous fluid collection. 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 No significant effusion remaining in the knee on the CT scan following the ultrasound guided aspiration earlier in the day. Cultures from the are no growth so far. Cultures from yesterday are pending both are synovial cultures from the knee. Impression again, my suspicion is that this represents an and acute inflammatory reaction of the quadriceps tendon at the repair site likely associated with uric acid deposition/tophus. His rapid improvement in symptoms argues against underlying soft tissue infection which would usually take longer to improve. I would recommend continued observation for 24 hours with continuance of the antibiotics and the steroids and if tomorrow he is further improved with improvement in flexion range of motion due to diminished discomfort, I think it would be reasonable for him to be discharged at that time provided cultures remain negative. It might be appropriate to discharge him on antibiotics of her broad-spectrum such as doxycycline just in case he might have had some early infection in the soft tissues around the sutures and also corticosteroids and he will also need follow-up with his primary care physician to address his elevated uric acid which I believe to be the source of this problem. Subjective Subjective Date/Time Seen: 04/09/22 06:42 Objective Data Vital Signs Vital Signs: Vital Signs - 24 hr 04/08/22 09:26 04/08/22 09:15 04/08/22 14:25 Temperature 36.6 C Pulse Rate 70 70 Respiratory Rate 14 Blood Pressure 136/49 L Pulse Oximetry 98 Oxygen Delivery Room Air 04/08/22 20:29 04/08/22 21:17 04/08/22 21:40 Temperature 36.6 C Pulse Rate 77 77 78 Respiratory Rate 16 16 Blood Pressure 161/66 H Pulse Oximetry 96 Oxygen Delivery 04/08/22 20:00 04/09/22 04:36 Temperature 36.4 C Pulse Rate 70 Respiratory Rate 16 Blood Pressure 139/64 Pulse Oximetry 97 Oxygen Delivery Room Air Intake/Output Intake/Output: Intake & Output 04/06/22 04/07/22 04/08/22 04/09/22 23:59 23:59 23:59 23:59 Intake Total 100 1540 450 Output Total 400 520 750 Balance -300 1020 -300 Meds/Results Medications: Active Medications Generic Name Dose Route Start Last Admin Trade Name Freq PRN Reason Stop Dose Admin Albuterol 2 puff 04/07/22 22:31 Albuterol Sulfate (*Sp) Aerosol 1 Puff INHALATION Q4H PRN Shortness Of Breath Aspirin 81 mg 04/08/22 09:00 04/08/22 09:25 Aspirin 81 Mg Enteric Tablet PO 81 mg DAILY TATYANA Administration Atorvastatin Calcium 40 mg 04/07/22 22:35 04/08/22 21:18 Atorvastatin 40 Mg Tablet PO 40 mg HS TATYANA Administration Enoxaparin Sodium 40 mg 04/08/22 13:10 04/08/22 14:58 Enoxaparin 40 Mg/0.4 Ml Syringe SUB-Q 40 mg DAILY TATYANA Administration Ferrous Sulfate 324 mg 04/08/22 08:00 04/08/22 09:25 Ferrous Sulfa
--- NOTE | 2022-04-09 07:37 | PC.NURSE ---
0715 AM received call from Dr. Callahan to discontinue the use of a knee brace for the patient Dalton Padilla in room 260. SCDs are in place bilaterally per physician's order.
[2022-04-09] MEDS: POTASSIUM CHLORIDE 20 MEQ PACKET (FOR LIQUID) PO ×2 (09:12→16:07)
[2022-04-09 09:13] VITALS: PULSE 74
[2022-04-09] MEDS: METOPROLOL TARTRATE 25 MG TABLET PO ×2 (09:13→23:02)
[2022-04-09] MEDS: ASPIRIN 81 MG ENTERIC TABLET PO (09:13)
[2022-04-09] MEDS: ENOXAPARIN 40 MG/0.4 ML SYRINGE SUB-Q (09:13)
[2022-04-09] MEDS: FUROSEMIDE 40 MG TABLET PO ×2 (09:14→16:07)
[2022-04-09] MEDS: lisinopriL 20 MG TABLET PO (09:14)
[2022-04-09] MEDS: FERROUS SULFATE 324 MG TABLET PO (09:14)
[2022-04-09] MEDS: CHOLECALCIFEROL 1,000 UNITS TABLET 1000 UNITS PO (09:14)
[2022-04-09] MEDS: MULTIVITAMINS THERAPEUTIC TAB (*BKC) 1 TABLET PO (09:14)
[2022-04-09] MEDS: FLUTICASONE/SALMETEROL 115-21 MCG INHALER 1 PUFF 2 PUFF INHALATION ×2 (10:14→21:28)
--- NOTE | 2022-04-09 13:48 | PM.IMPN ---
Progress Note: A&P Assessment and Plan (1) Cellulitis of left knee: Code(s): L03.116 - Cellulitis of left lower limb Status: Acute Assessment and Plan: Patient presented to the ED with c/o left knee pain, swelling and redness. He has had difficulty ambulating. Denies fevers, chills, rigors or acute injury/trauma. Knee x-ray shows moderate joint effusion. Mild leukocytosis on admission WBC 12.6, increased inflammatory markers CRP is 6.0 - 7.0, ESR 21 - 26 orthopedics consulted and appreciate recommendations. IV Rocephin and vancomycin continued. synovial fluid from joint aspiration analysis and cultures pending. Increased neutrophils noted. Initial culture and gram stain without organism or bacterial growth. Uric acid 8.9. On medrol dosepak currently. Discussed low purine diet. continue with analgesics MRI contraindicated due to pacemaker. US left knee aspiration on 04/07/22 with -16 mL fluid. Culture and gram stain pending. De-escalate antibiotics pending culture results. (2) HTN (hypertension): Qualifiers: Hypertension type: primary hypertension Qualified Code(s): I10 - Essential (primary) hypertension Code(s): I10 - Essential (primary) hypertension Status: Chronic Assessment and Plan: Chronic, stable. continue metoprolol, lisinopril, and lasix at home doses. (3) Mixed hyperlipidemia: Code(s): E78.2 - Mixed hyperlipidemia Status: Chronic Assessment and Plan: chronic, stable. continue with atorvastatin (4) Simple tics: Code(s): F95.9 - Tic disorder, unspecified Status: Chronic Assessment and Plan: chronic, stable. the patient has a facial tic. Continue risperidone at home dosing. (5) Atrial fibrillation: Qualifiers: Atrial fibrillation type: paroxysmal Qualified Code(s): I48.0 - Paroxysmal atrial fibrillation Code(s): I48.91 - Unspecified atrial fibrillation Status: Chronic Assessment and Plan: Chronic, stable. Continue metoprolol. He is only on aspirin therapy (6) Anemia: Qualifiers: Anemia type: unspecified type Qualified Code(s): D64.9 - Anemia, unspecified Code(s): D64.9 - Anemia, unspecified Status: Chronic Assessment and Plan: chronic, stable. at current baseline, continue iron supplement. (7) CHF (congestive heart failure): Qualifiers: Heart failure chronicity: chronic Heart failure type: combined systolic and diastolic Qualified Code(s): I50.42 - Chronic combined systolic (congestive) and diastolic (congestive) heart failure Code(s): I50.9 - Heart failure, unspecified Status: Chronic Assessment and Plan: Chronic, stable. Not in acute exacerbation. 12/2020 Echo EF normal with moderate LVH, mild prosthetic aortic valve regurgitation, mild prosthetic mitral valve regurgitation. Continue metoprolol, lisinopril and furosemide Monitor I/O and daily weights. (8) CAD (coronary artery disease): Qualifiers: Associated angina: without angina Coronary Disease-Associated Artery/Lesion type: bypass graft [place] vs. 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 Not in acute exacerbation. Continue LABA/ICS scheduled, substitute advair which is on formulary. PRN albuterol HFA Plan CODE STATUS: Dis
[2022-04-09 14:00] VITALS: BP 127/60; PULSE 67; RESP 16; TEMP 36.6; O2SAT 97
[2022-04-09] MEDS: cefTRIAXone 2 GM in SODIUM CHLORIDE 0.9% IV 100 ML 200 ML IVPB (20:49)
[2022-04-09] MEDS: MELATONIN 5 MG TABLET 10 MG PO (20:50)
[2022-04-09] MEDS: risperiDONE 0.25 MG TABLET PO (20:51)
[2022-04-09] MEDS: ATORVASTATIN 40 MG TABLET PO (20:51)
[2022-04-09 22:52] VITALS: BP 169/68; PULSE 71; RESP 16; TEMP 36.6; O2SAT 98
[2022-04-09 23:02] VITALS: PULSE 71
[2022-04-10 05:01] VITALS: BP 156/82; PULSE 69; RESP 16; TEMP 36.4; O2SAT 100
[2022-04-10] MEDS: methylPREDNISolone (MEDROL) DOSEPACK 4 MG TABLETS PO ×2 (05:46→13:12)
[2022-04-10 06:01] LABS: Basophils Percent Auto 0.2 % (0.2-1.2); Hematocrit 35.4 % (42.0-52.0); Hemoglobin 11.3 g/dL (14.0-18.0); Immature Granulocyte Absolute 0.11 K/mm3 (0.00-0.031); Immature Granulocyte Percent A 0.6 % (0-0.5); Immature Platelet Fraction Pct 5.9 % (0.9-11.2); Lymphocytes Absolute Auto 1.33 K/mm3 (0.9-3.2); Lymphocytes Percent Auto 7.7 % (18.3-44.2); Mean Corpuscular HGB Conc 31.9 g/dl (32-36); Mean Corpuscular Volume 97.3 fl (80-100); Mean Platelet Volume 11.5 fl (7.4-10.4); Monocytes Absolute Auto 0.6 K/mm3 (0.1-0.6); Monocytes Percent Auto 3.5 % (2.6-8.5); Neutrophils Absolute Auto 15.2 K/mm3 (1.3-6.7); Platelet Count Result 139 k/mm3 (150-375); Red Blood Count 3.64 M/mm3 (4.6-6.20); Red Cell Distribution Width 13.2 % (11.5-14.5); White Blood Count 17.3 K/mm3 (4.5-10.0)
[2022-04-10 06:18] LABS: Anion Gap 7 mmol/L (8-16); Blood Urea Nitrogen 34 mg/dL (9-20); Calcium 8.7 mg/dL (8.4-10.2); Carbon Dioxide 26 mmol/L (22-30); Chloride 104 mmol/L (98-107); Estimated CRCL calculation 46 ml/min; Estimated Glomerular Filt Rate 53; Glucose 117 mg/dL (65-110); Potassium 4.2 mmol/L (3.4-5.0); Sodium 137 mmol/L (137-145)
[2022-04-10] MEDS: FLUTICASONE/SALMETEROL 115-21 MCG INHALER 1 PUFF 2 PUFF INHALATION (07:51)
[2022-04-10 09:06] VITALS: PULSE 80
[2022-04-10] MEDS: lisinopriL 20 MG TABLET PO (09:06)
[2022-04-10] MEDS: VITAMIN E 100 UNIT CAPSULE PO (09:06)
[2022-04-10] MEDS: FERROUS SULFATE 324 MG TABLET PO (09:06)
[2022-04-10] MEDS: METOPROLOL TARTRATE 25 MG TABLET PO (09:06)
[2022-04-10] MEDS: OMEGA 3 POLYUNSAT FATTY ACIDS 1 GM CAP PO (09:06)
[2022-04-10] MEDS: FUROSEMIDE 40 MG TABLET PO (09:06)
[2022-04-10] MEDS: ASPIRIN 81 MG ENTERIC TABLET PO (09:06)
[2022-04-10] MEDS: CHOLECALCIFEROL 1,000 UNITS TABLET 1000 UNITS PO (09:06)
[2022-04-10] MEDS: POTASSIUM CHLORIDE 20 MEQ PACKET (FOR LIQUID) PO (09:06)
[2022-04-10] MEDS: MULTIVITAMINS THERAPEUTIC TAB (*BKC) 1 TABLET PO (09:06)
[2022-04-10] MEDS: ENOXAPARIN 40 MG/0.4 ML SYRINGE SUB-Q (09:07)
--- NOTE | 2022-04-10 12:16 | PM.DS ---
DS: Admitting Diagnosis Discharge Date 04/10/2022 Admitting Diagnosis cellulitis of the left knee DS: Discharge Diagnosis Discharge Diagnosis (1) Cellulitis of left knee: Code(s): L03.116 - Cellulitis of left lower limb Status: Acute (2) HTN (hypertension): Qualifiers: Hypertension type: primary hypertension Qualified Code(s): I10 - Essential (primary) hypertension Code(s): I10 - Essential (primary) hypertension Status: Chronic (3) Mixed hyperlipidemia: Code(s): E78.2 - Mixed hyperlipidemia Status: Chronic (4) Simple tics: Code(s): F95.9 - Tic disorder, unspecified Status: Chronic (5) Atrial fibrillation: Qualifiers: Atrial fibrillation type: paroxysmal Qualified Code(s): I48.0 - Paroxysmal atrial fibrillation Code(s): I48.91 - Unspecified atrial fibrillation Status: Chronic (6) Anemia: Qualifiers: Anemia type: unspecified type Qualified Code(s): D64.9 - Anemia, unspecified Code(s): D64.9 - Anemia, unspecified Status: Chronic (7) CHF (congestive heart failure): Qualifiers: Heart failure chronicity: chronic Heart failure type: combined systolic and diastolic Qualified Code(s): I50.42 - Chronic combined systolic (congestive) and diastolic (congestive) heart failure Code(s): I50.9 - Heart failure, unspecified Status: Chronic (8) CAD (coronary artery disease): Qualifiers: Associated angina: without angina Coronary Disease-Associated Artery/Lesion type: bypass graft [place] vs. 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 Patient had decreased range of motion in left knee. X-ray showed acute osseous finding an anterior soft tissue swelling with moderate left knee effusion. Patient had white blood cell count of 12.6, creatinine of 1.4 (which is baseline), uric acid of 8.9. Patient has CRP of 6-[address] my discharge of 21-26. Patient was admitted into observation and started on Rocephin and vancomycin. Patient was started on IV Rocephin and vancomycin. Ortho consulted and removed approximately 1/3 of syringe full of fluid. No bacteria on Gram stain. 336 white blood cells and neutrophil predominance and a 3500 red cells. Crystals were negative. Orthopedic started patient on Decadron 10 mg IV and a Medrol Dosepak. Patient's range of motion improved day-to-day as well with the swelling and the pain. Cultures have continued to show no growth to date. patient has been working with PT and OT during his stay. Orthopedics okayed patient for discharge on broad-spectrum antibiotics and steroids. Labs are progressing back to baseline other that WBC count. Talked to orthopedist, Dr. Callahan, and he thinks that WBC count is due to steroid use. Status at Discharge Functional status at discharge: independent ambulation Overall status at discharge: patient is progressing back to baseline Time Spent with Patient Time attestation: Total time spent providing and/or coordinating discharge services: Time spent: Greater than 30 minutes Exam Narrative: GENERAL: Comfortable, no acute distress HENMT: moist mucous membranes EYES: EOM intact b/l NECK: no lymphadenopathy RESPIRATORY: clear to a
--- NOTE | 2022-04-10 13:27 | PM.PNORT ---
Progress Note: A&P Assessment and Plan (1) Left knee pain: Code(s): M25.562 - Pain in left knee Status: Acute Assessment and Plan: Patient is further improved. He is been walking around putting full weight on his knee he is using the walker for balance is not been having pain with this he was able climb stairs today in therapy and he would like to go home. On exam there is minimal trace effusion the knee joint. There is no warmth or redness today. His tenderness is localized to a 1/2 inch diameter area centered 2 in proximal to the superior pole of patella. There were no other areas of tenderness in the knee. He has 5/5 quadriceps strength today without discomfort and he has flexion to about 90? which is improved and he feels a small twinge of discomfort 2 in above the patella with this. His cultures have been no growth to date from the synovial fluid aspirate and I think we can safely conclude there is no evidence of septic arthritis. His white count went up to 17,000 yesterday is 17,000 today. I think this is more likely due to the Demargination of neutrophils from corticosteroid use then a sign that he has worsening infection because certainly clinically is doing much better. Impression: Differential diagnosis and for his pain and inflammatory reaction at the quadriceps tendon where he had repair 5 years ago includes gouty deposit/tophus reaction and possibly a soft tissue cellulitis around the sutures at that location. Again, ultrasound and CT scan showed no fluid collection within the tendon itself a could be aspirated. I would recommend we continue on the corticosteroids for a week and recommend we give him 1 week of doxycycline to cover for possible cellulitis and I will see him in the office in a week to assess his progress. I have recommended that he see his primary care physician Dr. Renee about treatment to lower his uric acid level which was elevated at 8.9. If he has any worsening symptoms after discharge he can come back to the emergency room. He is weight-bearing as tolerated. Subjective Subjective Date/Time Seen: 04/10/22 13:27 Objective Data Vital Signs Vital Signs: Vital Signs - 24 hr 04/09/22 14:00 04/09/22 22:52 04/09/22 23:02 Temperature 36.6 C 36.6 C Pulse Rate 67 71 71 Respiratory Rate 16 16 Blood Pressure 127/60 169/68 H Pulse Oximetry 97 98 Oxygen Delivery 04/09/22 20:30 04/10/22 05:01 04/10/22 09:06 Temperature 36.4 C Pulse Rate 69 80 Respiratory Rate 16 Blood Pressure 156/82 H Pulse Oximetry 100 Oxygen Delivery Room Air Intake/Output Intake/Output: Intake & Output 04/07/22 04/08/22 04/09/22 04/10/22 23:59 23:59 23:59 23:59 Intake Total 100 1540 1970 1310 Output Total 921 418 9018 800 Balance -300 1020 745 510 Meds/Results Medications: Active Medications Generic Name Dose Route Start Last Admin Trade Name Freq PRN Reason Stop Dose Admin Acetaminophen 650 mg 04/09/22 09:03 Acetaminophen 325 Mg Tablet PO Q4H PRN Mild Pain (1-3) or Fever Albuterol 2 puff 04/07/22 22:31 Albuterol Sulfate (*Sp) Aerosol 1 Puff INHALATION Q4H PRN Shortness Of Breath Aspirin 81 mg 04/08/22 09:00 04/10/22 09:06 Aspirin 81 Mg Enteric Tablet PO 81 mg DAILY TATYANA Administration Atorvastatin Calcium 40 mg 04/07/22 22:35 04/09/22 20:51 Atorvastatin 40 Mg Tablet PO 40 mg HS TATYANA Administration Enoxaparin Sodium 40 mg 04/08/22 13:10 04/10/22 09:07 Enoxaparin 40 Mg/0.4 Ml Syringe SUB-Q 40 mg DAILY TATYANA Administration Ferrous Sulfate 324 mg 04/08/22 08:00 04/10/22 09:06 Ferrous Sulfate 324 Mg Tablet PO 324 mg DAILY@0800 TATYANA Administration Fish Oil 1 gm 04/08/22 09:00 04/10/22 09:06 [place] 3 Polyunsat Fatty Acids 1 Gm Cap PO 1 gm MoWeFrSa TATYANA Administration Furosemide 40 mg 04/08/22 09:00 04/10/22 09:06 Furosemide 40 Mg Tablet PO 40 mg BID TATYANA Administration
[2022-04-10 14:00] VITALS: BP 145/58; PULSE 70; RESP 16; TEMP 36.4; O2SAT 100
== END 2022-04-10 15:50 | disposition home or self-care (01) ==
LOC: ANHED 18:52 → ANH2MED 21:01
PROVIDERS: Emergency Medicine; Nurse Practitioner; Nurse Practitioner Family; Orthopaedic Surgery; Physician Assistant; Admitting Provider Student in an Organized Health Care Education/Training Program; Emergency Provider Emergency Medicine; PCP Family Medicine; Visit Provider Internal Medicine
DX: L03.116 Cellulitis of left lower limb (principal); I11.0 Hypertensive heart disease with heart failure; I50.42 Chronic combined systolic (congestive) and diastolic (congestive) heart failure; E78.2 Mixed hyperlipidemia; F95.9 Tic disorder, unspecified; I48.0 Paroxysmal atrial fibrillation; D64.9 Anemia, unspecified; I50.9 Heart failure, unspecified; I25.10 Atherosclerotic heart disease of native coronary artery without angina pectoris; J44.9 Chronic obstructive pulmonary disease, unspecified; Z20.822 Contact with and (suspected) exposure to COVID-19; R94.4 Abnormal results of kidney function studies; E03.9 Hypothyroidism, unspecified; Z95.0 Presence of cardiac pacemaker; M17.11 Unilateral primary osteoarthritis, right knee; Z95.4 Presence of other heart-valve replacement; Z95.1 Presence of aortocoronary bypass graft; D72.829 Elevated white blood cell count, unspecified; F10.90 Alcohol use, unspecified, uncomplicated; Z87.891 Personal history of nicotine dependence; Z79.51 Long term (current) use of inhaled steroids; Z79.82 Long term (current) use of aspirin; Z79.899 Other long term (current) drug therapy; Z82.49 Family history of ischemic heart disease and other diseases of the circulatory system
CPT/HCPCS: 20611; 36415; 73564; 73700; 80048; 82565; 82945; 83036; 83735; 84132; 84157; 84550; 85025; 85055; 85652; 86140; 87070; 87075; 87205; 87636; 89051; 89060; 94640; 96365; 96366; 96368; 96372; 96374; 96375; 97110; 97116; 97161; 97530; 99285; A9270; G0378; J0696; J1100; J1650; J3370; L1830

== ENCOUNTER 2022-04-17 09:53 | Outpatient (CLI) | payer MEDICARE, SELFPAY ==
--- NOTE | ~2022-04-17 | US_ITS ---
US venous doppler [facility] DATE: 04/17/2022 10:45 INDICATION: Left calf severe swelling TECHNIQUE: Real-time and color flow imaging and Doppler analysis of the veins of the left lower extre mity COMPARISON: venous duplex examination of the lower extremities FINDINGS: The left greater saphenous vein is patent. There is spontaneous and phasic flow and normal augmentation and color flow signal and normal compression of the deep veins of the left lower extremi ty. There is edema of the left lower extremity. IMPRESSION: Left lower extremity edema; no evidence of deep venous thrombosis Reviewed, dictated and finalized at [facility]. Reviewed, dictated and finalized at location [facility]. ADVISOR
== END 2022-04-17 09:54 | disposition home or self-care (01) ==
LOC: ANHIMG 09:57
PROVIDERS: PCP Family Medicine; Visit Provider Orthopaedic Surgery
DX: R60.0 Localized edema (principal)
CPT/HCPCS: 93971

== ENCOUNTER 2022-08-07 14:37 | Outpatient (CLI) | payer MEDICARE, SELFPAY ==
--- NOTE | ~2022-08-07 | US_ITS ---
EXAMINATION: US venous doppler [facility] DATE: 08/07/2022 15:18 INDICATION: M79.89 - Other specified soft tissue disorders . Lower extremity swelling/redness. TECHNIQUE: Grayscale images without and with compression and Doppler images of the bilateral lower ex tremity veins were obtained. COMPARISON: 04/17/2022 FINDINGS: The right common femoral vein, profunda (deep) femoral vein, femoral vein, popliteal vein, peroneal v ein, posterior tibial veins, gastrocnemius vein, and greater saphenous vein are patent. The left common femoral vein, profunda (deep) femoral vein, femoral vein, popliteal vein, peroneal ve in, posterior tibial veins, gastrocnemius vein, and greater saphenous vein are patent. IMPRESSION: 1. Patent bilateral lower extremity veins. No evidence of deep venous thrombosis. Reviewed, dictated and finalized at location K. IMPRESSION: 1. Patent bilateral lower extremity veins. No evidence of deep venous thrombos is.
== END 2022-08-07 14:38 | disposition home or self-care (01) ==
PROVIDERS: PCP Family Medicine; Visit Provider Nurse Practitioner Family
DX: M79.89 Other specified soft tissue disorders (principal)
CPT/HCPCS: 93970

== ENCOUNTER 2023-07-30 13:51 | Outpatient (CLI) | payer MEDICARE, SELFPAY ==
--- NOTE | ~2023-07-30 | US_ITS ---
US art doppler w press LE BI INDICATION: Peripheral arterial disease TECHNIQUE: Segmental pressures and plethysmographic and Doppler waveforms of the brachial and lower e xtremity arteries were obtained. COMPARISON: None. FINDINGS: Right and left brachial artery pressures of 165 mm Hg and 162 mm Hg, respectively, are concordant (no rmal difference <= 30 mmHg). The right ankle-brachial index (MARY) is 0.88 (normal >= 0.9-1.0). The right great toe-brachial index (TBI) is 0.57 (normal >= 0.60). The left MARY is 0.95. The left TBI is 0.39. There is biphasic flow in the lower extremity arteries bi laterally. IMPRESSION: 1. Diminished right ankle and bilateral toe brachial indices consistent with mild peripheral arterial disease. Reviewed, dictated and finalized at location A. IMPRESSION: 1. Diminished right ankle and bilateral toe brachial indices consistent with mi ld peripheral arterial disease.
== END 2023-07-30 13:52 | disposition home or self-care (01) ==
PROVIDERS: PCP Family Medicine; Visit Provider Podiatrist Foot & Ankle Surgery
DX: I73.9 Peripheral vascular disease, unspecified (principal)
CPT/HCPCS: 93923

== ENCOUNTER 2024-09-13 12:47 | Outpatient (CLI) | payer MEDICARE, SELFPAY ==
--- NOTE | ~2024-09-13 | US_ITS ---
TESTICULAR ULTRASOUND (Doppler ultrasound interrogation techniques used as needed for this exam.) Ordering provider: Kassandra Pelaez [facility] History: . N50.89 - Other specified disorders of the male genital or... . Comparison: None. FINDINGS: TESTICLES: Normal in size. The right measures 4.1x 2.9x 2.8 cm and the left measures 2.8x 3.2x 2.3 cm . Normal echogenicity bilaterally without mass lesion. Normal Doppler flow bilaterally. EPIDIDYMIDES: Normal in size. The right measures 0.7 x 1.3 cm and the left 1 x 1.3 cm. Normal echogen icity bilaterally. Both demonstrate normal Doppler flow. HYDROCELE: Bilateral moderate. VARICOCELE: None. OTHER ABNORMALITY: None seen. Edema is seen bilaterally. IMPRESSION: Bilateral moderate hydrocele. Otherwise, normal testicular ultrasound. Reviewed, dictated and finalized at location A.
== END 2024-09-13 12:48 | disposition home or self-care (01) ==
LOC: MICIMG 12:49
PROVIDERS: PCP Family Medicine; Visit Provider Physician Assistant Medical
DX: N50.89 Other specified disorders of the male genital organs (principal); N43.3 Hydrocele, unspecified
CPT/HCPCS: 76870; 93976